=== PATIENT | male | born 1965 | race Native Hawaiian/Other Pacific Islander ===

== ENCOUNTER 2017-04-02 11:38 | Observation (INO) | payer SELFPAY ==
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
[2017-04-02] MEDS ORDERED: KETOROLAC TROMETHAMINE 60 MG/2 ML VIAL IM ONE (13:32)
[2017-04-02] MEDS ORDERED: ORPHENADRINE CITRATE 60 MG/2ML IM PRN (14:05)
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
[2017-04-02 15:22] VITALS: BMI 15.7
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
[2017-04-03 10:51] VITALS: BP 121/75
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
== END 2017-04-03 10:45 | disposition home or self-care (01) ==
LOC: ED 11:38 → INTOOBSV 13:53 → SOUTH 13:53
PROVIDERS: ADMIT Physician Assistant; ATTEND Physician Assistant
DX: S20.219A Contusion of unspecified front wall of thorax, initial encounter (principal); S22.49XA Multiple fractures of ribs, unspecified side, initial encounter for closed fracture; S29.8XXA Other specified injuries of thorax, initial encounter; V89.2XXA Person injured in unspecified motor-vehicle accident, traffic, initial encounter; Y92.9 Unspecified place or not applicable; Y99.9 Unspecified external cause status
CPT/HCPCS: 70450; 71010; 71020; 72125; 73030; 73060; G0378; J1885; 96372; 99217; 99283; G0379